=== PATIENT | male | born 1995 | race Caucasian/White ===

== ENCOUNTER 2023-12-07 16:21 | Emergency (ER) | payer BC, OTHER ==
[2023-12-07 16:55] VITALS: BP 148/99; PULSE 104
[2023-12-07] MEDS: Apixaban 5 MG Tab PO ONE (17:28)
== END 2023-12-07 17:31 | disposition home or self-care (01) ==
LOC: DL.ED 16:21
DX: I80.01 Phlebitis and thrombophlebitis of superficial vessels of right lower extremity (principal)
CPT/HCPCS: 93971; 99284; A9270